=== PATIENT | female | born 1960 | race Caucasian/White ===

== ENCOUNTER → 2016-06-19 | Outpatient (CLI) | payer MEDICARE ==
[~2016-06-19] MED LIST: ASPIRIN324 MG PO; ASPIRIN325 MG PO; ASPIRIN81 M1 PO; ATARAX25 MG PO; ATIVAN0.5 MG PO; AUGMENTIN 875 M1 TAB PO; AUGMENTIN 875875 MG PO; BENTYL10 MG PO; CIPRODEX 0.3%-7.5 ML OT; HYDROCODONE BIT1 T11 PO; IBUPROFEN 30 M800 MG PO; LIPITOR40 MG PO; LORAZEPAM0.5 MG PO; MEDROL DOSEPAK4 MG PO; MOBIC7.5 MG PO; MOTRIN800 MG PO; NAPROSYN500 MG PO; NASONEX0.05 MG/AC NAS; NKHM; NORCO 325 MG-51 TAB PO; OMEPRAZOLE MAGN20 MG PO; PARAFON FORTE500 MG PO; PEPCID20 MG PO; PERCOCET 325 MG1 TA6 PO; PREDNICOT20 MG PO; PREDNISONE10 M1 PO; PRILOSEC20 MG PO; PROAIR HFA8.5 GM IH; PROZAC20 MG PO; REMERON15 MG PO; SPIRIVA -- 3018 MCG PO; TRAMADOL HCL50 MG PO; ULTRAM50 MG PO; VIBRAMYCIN100 MG PO; VITAMIN D2000 IU PO; ZYRTEC10 MG PO
== END | disposition home or self-care (01) ==
LOC: MAMMO 02:59
DX: Z12.31 Encounter for screening mammogram for malignant neoplasm of breast (principal)

== ENCOUNTER 2016-12-23 15:10 | Emergency (ER) | payer MEDICARE ==
[~2016-12-23] VITALS: Ht 172.7 cm; Wt 102.1 kg
[2016-12-23 15:18] VITALS: BP 149/87
[2016-12-23] MEDS ORDERED: CEPHALEXIN500 M1 PO (15:31)
== END 2016-12-23 16:15 | disposition home or self-care (01) ==
LOC: ED 15:10
DX: S91.331A Puncture wound without foreign body, right foot, initial encounter (principal); J44.9 Chronic obstructive pulmonary disease, unspecified; F17.200 Nicotine dependence, unspecified, uncomplicated; Z79.899 Other long term (current) drug therapy; Z79.02 Long term (current) use of antithrombotics/antiplatelets; W45.0XXA Nail entering through skin, initial encounter; Y93.89 Activity, other specified; Y92.89 Other specified places as the place of occurrence of the external cause; Y99.8 Other external cause status

== ENCOUNTER → 2017-08-22 | Outpatient (CLI) | payer MEDICARE ==
[~2017-08-22] MED LIST changes: +CEPHALEXIN500 M1 PO
== END | disposition home or self-care (01) ==
LOC: MAMMO 01:19
DX: Z12.31 Encounter for screening mammogram for malignant neoplasm of breast (principal)

== ENCOUNTER → 2017-10-23 | Outpatient (CLI) | payer MEDICARE | END | disposition home or self-care (01) | LOC: RAD 12:47 → CT 14:00 | DX: Z13.820 Encounter for screening for osteoporosis (principal); Z12.2 Encounter for screening for malignant neoplasm of respiratory organs; R06.02 Shortness of breath; F17.200 Nicotine dependence, unspecified, uncomplicated; Z78.0 Asymptomatic menopausal state ==

== ENCOUNTER → 2017-12-19 | Outpatient (CLI) | payer MEDICARE ==
[~2017-12-19] MED LIST changes: +CYMBALTA30 MG PO; -PROZAC20 MG PO; +PROZAC40 M1 PO
== END | disposition home or self-care (01) ==
LOC: CARD 07:55
DX: R07.2 Precordial pain (principal); R00.2 Palpitations

== ENCOUNTER → 2017-12-28 | Outpatient (CLI) | payer MEDICARE | END | disposition home or self-care (01) | LOC: US 12-27 10:30 | DX: K76.0 Fatty (change of) liver, not elsewhere classified (principal); Z90.49 Acquired absence of other specified parts of digestive tract ==

== ENCOUNTER → 2018-03-01 | Outpatient (CLI) | payer MEDICARE ==
[2018-03-01 15:50] LABS: BILIRUBIN NEGATIVE (NEGATIVE); BLOOD TRACE-LYSED (NEGATIVE); CLARITY CLEAR (CLEAR); COLOR YELLOW (YELLOW); GLUCOSE NEGATIVE (NEGATIVE); KETONE NEGATIVE (NEGATIVE); LEUKO ESTERASE TRACE (NEGATIVE); NITRITE NEGATIVE (NEGATIVE); SPECIFIC GRAVITY <= 1.005 (1.005-1.030); UROBILINOGEN 0.2 E.U./dl (0.2-1.0)
[2018-03-01 16:13] LABS: BUN 17 mg/dl (7-24); CHLORIDE 102 mmol/L (98-107); CREATININE 1.12 mg/dL (0.55-1.02); POTASSIUM 3.6 mmol/L (3.5-5.1); SODIUM 139 mmol/L (136-145)
[2018-03-01 16:19] LABS: BACTERIA TRACE
== END | disposition home or self-care (01) ==
LOC: LAB 15:17
PROVIDERS: Internal Medicine Nephrology
DX: N18.9 Chronic kidney disease, unspecified (principal)

== ENCOUNTER 2019-03-18 15:15 | Emergency (ER) | payer MEDICARE ==
[~2019-03-18] VITALS: Ht 167.6 cm; Wt 101.6 kg
[2019-03-18 15:15] VITALS: BP 131/72
== END 2019-03-18 16:54 | disposition home or self-care (01) ==
LOC: ED 15:15
DX: M72.2 Plantar fascial fibromatosis (principal); I25.2 Old myocardial infarction; I10 Essential (primary) hypertension; K21.9 Gastro-esophageal reflux disease without esophagitis; G89.29 Other chronic pain; J44.9 Chronic obstructive pulmonary disease, unspecified; E78.00 Pure hypercholesterolemia, unspecified; Z88.8 Allergy status to other drugs, medicaments and biological substances; Z91.048 Other nonmedicinal substance allergy status; Z79.899 Other long term (current) drug therapy; Z90.49 Acquired absence of other specified parts of digestive tract; Z86.73 Personal history of transient ischemic attack (TIA), and cerebral infarction without residual deficits

== ENCOUNTER → 2019-04-21 | Outpatient (CLI) | payer MEDICARE | END | disposition home or self-care (01) | LOC: LAB 10:27 | DX: B34.9 Viral infection, unspecified (principal) ==

== ENCOUNTER → 2019-05-07 | Outpatient (CLI) | payer MEDICARE | END | disposition home or self-care (01) | LOC: MAMMO 08:56 | DX: Z12.31 Encounter for screening mammogram for malignant neoplasm of breast (principal) ==

== ENCOUNTER 2020-01-30 20:07 | Emergency (ER) | payer MEDICARE ==
[~2020-01-30] VITALS: Wt 104.3 kg
[2020-01-30 20:14] VITALS: BP 130/86
== END 2020-01-30 20:53 | disposition home or self-care (01) ==
LOC: ED 20:07
DX: R05 Cough (principal); Z88.8 Allergy status to other drugs, medicaments and biological substances; Z79.899 Other long term (current) drug therapy; Z20.828 Contact with and (suspected) exposure to other viral communicable diseases

== ENCOUNTER → 2020-03-15 | Outpatient (CLI) | payer MEDICARE | END | disposition home or self-care (01) | LOC: CARD 07:30 → MAMMO 07:30 → CARD 08:05 | PROVIDERS: ATTEND Internal Medicine | DX: R00.2 Palpitations (principal) ==

== ENCOUNTER → 2020-08-25 | Outpatient (CLI) | payer MEDICARE | END | disposition home or self-care (01) | LOC: US 09:16 → MAMMO 10:30 | PROVIDERS: ATTEND Internal Medicine | DX: R10.12 Left upper quadrant pain (principal) ==

== ENCOUNTER → 2020-09-01 | Outpatient (CLI) | payer MEDICARE ==
[2020-09-01 13:38] LABS: BASO % 0.5 % (0.0-1.0); EOS # 0.7 10*3/uL (0.0-0.4); EOS % 7.5 % (1.0-4.0); LYMPH # 2.4 10*3/uL (1.3-4.4); LYMPH % 27.1 % (27.0-41.0); MEAN CELL VOLUME 98.5 fl (81.0-99.0); MEAN CORPUSCULAR HGB 31.9 pg (27.0-31.0); MEAN CORPUSCULAR HGB CONC 32.3 g/dl (33.0-37.0); MEAN PLATELET VOLUME 10.8 fl (9.6-12.3); MONO # 0.7 10*3/uL (0.1-1.0); MONO % 7.5 % (3.0-9.0); NEUT # 5.1 10*3/uL (2.3-7.9); NEUT % 57.1 % (47.0-73.0); PLATELET COUNT AUTOMATED 268 10*3/uL (130-400); RED BLOOD COUNT 4.77 10*6/uL (4.10-5.10); RED CELL DISTRI WIDTH 11.8 % (0-14.5); WHITE BLOOD COUNT 8.9 10*3/uL (4.8-10.8)
[2020-09-01 14:07] LABS: ALBUMIN 3.1 gm/dl (3.1-4.5); ALKALINE PHOSPHATASE 107 U/L (45-117); BUN 18 mg/dl (7-24); CHLORIDE 103 mmol/L (98-107); CREATININE 1.04 mg/dL (0.55-1.02); FREE T4 0.96 ng/dl (0.76-1.46); SGOT/AST 15 IU/L (3-35); SGPT/ALT 23 U/L (12-78); SODIUM 137 mmol/L (136-145); TOTAL PROTEIN 7.2 gm/dL (6.4-8.2)
== END | disposition home or self-care (01) ==
LOC: LAB 11:46
PROVIDERS: ATTEND Internal Medicine
DX: R20.2 Paresthesia of skin (principal)

== ENCOUNTER → 2020-09-02 | Outpatient (CLI) | payer MEDICARE | END | disposition home or self-care (01) | LOC: CT 00:12 | PROVIDERS: ATTEND Internal Medicine | DX: K43.9 Ventral hernia without obstruction or gangrene (principal); Z90.49 Acquired absence of other specified parts of digestive tract ==

== ENCOUNTER 2020-09-30 19:28 | Emergency (ER) | payer MEDICARE ==
[~2020-09-30] VITALS: Ht 172.7 cm; Wt 101.2 kg
[2020-09-30 19:41] VITALS: BP 109/71
== END 2020-09-30 20:22 | disposition home or self-care (01) ==
LOC: ED 19:28
DX: R21 Rash and other nonspecific skin eruption (principal); T50.995A Adverse effect of other drugs, medicaments and biological substances, initial encounter; Z79.899 Other long term (current) drug therapy; Y92.89 Other specified places as the place of occurrence of the external cause

== ENCOUNTER 2020-11-28 19:18 | Emergency (ER) | payer MEDICARE ==
[~2020-11-28] VITALS: Ht 167.6 cm; Wt 86.2 kg
[2020-11-28 19:39] LABS: BASO # 0.1 10*3/uL (0.0-0.1); BASO % 0.6 % (0.0-1.0); EOS # 0.6 10*3/uL (0.0-0.4); EOS % 5.9 % (1.0-4.0); HEMATOCRIT 45.5 % (37.0-47.0); LYMPH # 3.2 10*3/uL (1.3-4.4); MEAN CELL VOLUME 97.2 fl (81.0-99.0); MEAN CORPUSCULAR HGB 32.1 pg (27.0-31.0); MEAN PLATELET VOLUME 9.4 fl (9.6-12.3); MONO # 0.7 10*3/uL (0.1-1.0); MONO % 7.9 % (3.0-9.0); NEUT # 4.8 10*3/uL (2.3-7.9); NEUT % 51.2 % (47.0-73.0); PLATELET COUNT AUTOMATED 250 10*3/uL (130-400); RED BLOOD COUNT 4.68 10*6/uL (4.10-5.10); RED CELL DISTRI WIDTH 11.9 % (0-14.5); WHITE BLOOD COUNT 9.4 10*3/uL (4.8-10.8)
[2020-11-28 19:41] LABS: BILIRUBIN Negative (Negative); BLOOD Negative (Negative); CLARITY Clear (Clear); COLOR Yellow (Yellow); GLUCOSE Negative (Negative); KETONE Negative (Negative); LEUKO ESTERASE Negative (Negative); NITRITE Negative (Negative); PH 6.5 (4.5-8.0); SPECIFIC GRAVITY <= 1.005 (1.001-1.030); UROBILINOGEN 0.2 E.U./dl (0.0-1.0)
[2020-11-28 19:50] LABS: BACTERIA TRACE; URINE AMPHETAMINES < 1000 (1000ng/ml); URINE BARBITURATES < 200 (200ng/ml); URINE BENZODIAZEPINES < 200 (200ng/ml); URINE CANNABINOIDS (THC) < 50 (50ng/ml); URINE COCAINE < 300 (300ng/ml); URINE METHADONE < 300 (300ng/ml); URINE OPIATES < 300 (300ng/ml); URINE PHENCYCLIDINE < 25 (25ng/ml)
[2020-11-28 19:55] LABS: ALBUMIN 3.4 gm/dl (3.1-4.5); ALKALINE PHOSPHATASE 110 U/L (45-117); BUN 17 mg/dl (7-24); CHLORIDE 102 mmol/L (98-107); CREATININE 1.34 mg/dL (0.55-1.02); POTASSIUM 3.8 mmol/L (3.5-5.1); SGOT/AST 24 IU/L (3-35); SGPT/ALT 23 U/L (12-78); SODIUM 138 mmol/L (136-145); TOTAL PROTEIN 7.1 gm/dL (6.4-8.2)
[2020-11-28 20:04] LABS: ACETAMINOPHEN (TYLENOL) < 5.0 ug/ml (10-30); ETHYL ALCOHOL < 3.0 mg/dl (<3)
[2020-11-29 08:36] VITALS: BP 113/71
== END 2020-11-29 08:41 | disposition home or self-care (01) ==
LOC: ED 19:18
PROVIDERS: Emergency Medicine
DX: F43.21 Adjustment disorder with depressed mood (principal); J44.9 Chronic obstructive pulmonary disease, unspecified; Z88.8 Allergy status to other drugs, medicaments and biological substances; Z91.048 Other nonmedicinal substance allergy status; Z79.899 Other long term (current) drug therapy; Z98.51 Tubal ligation status; Z98.890 Other specified postprocedural states

== ENCOUNTER → 2021-04-15 | Outpatient (CLI) | payer MEDICARE | END | disposition home or self-care (01) | LOC: RAD 12:12 | PROVIDERS: ATTEND Internal Medicine | DX: M25.721 Osteophyte, right elbow (principal); M19.011 Primary osteoarthritis, right shoulder ==

== ENCOUNTER → 2021-05-06 | Outpatient (CLI) | payer MEDICARE | END | disposition home or self-care (01) | LOC: RAD 15:52 | PROVIDERS: ATTEND Internal Medicine | DX: M47.22 Other spondylosis with radiculopathy, cervical region (principal); M25.78 Osteophyte, vertebrae; M48.02 Spinal stenosis, cervical region ==

== ENCOUNTER → 2021-06-22 | Outpatient (CLI) | payer MEDICARE | END | disposition home or self-care (01) | LOC: MRI 09:21 | PROVIDERS: ATTEND Internal Medicine | DX: M47.26 Other spondylosis with radiculopathy, lumbar region (principal); M48.02 Spinal stenosis, cervical region; M25.78 Osteophyte, vertebrae ==

== ENCOUNTER → 2021-10-26 | Outpatient (CLI) | payer OTHER ==
[~2021-10-26] MED LIST changes: +NEURONTIN100 MG PO; +PINDOLOL5 MG PO; +SINGULAIR10 M1 PO; +Synthroid,Levo50 MCG PO; +VENTOLIN,PR2 MG/5 ML PO
== END ==
LOC: CARD 00:11
PROVIDERS: ATTEND Internal Medicine
DX: R07.2 Precordial pain (principal)

== ENCOUNTER → 2022-06-01 | Outpatient (CLI) | payer OTHER | END | disposition home or self-care (01) | LOC: MAMMO 01:05 | PROVIDERS: ATTEND Internal Medicine | DX: Z12.31 Encounter for screening mammogram for malignant neoplasm of breast (principal) ==

== ENCOUNTER → 2022-09-14 | Outpatient (CLI) | payer OTHER | END | disposition home or self-care (01) | LOC: US 01:10 | PROVIDERS: ATTEND Internal Medicine | DX: L81.9 Disorder of pigmentation, unspecified (principal) ==

== ENCOUNTER 2023-04-09 17:51 | Emergency (ER) | payer OTHER ==
[~2023-04-09] VITALS: Ht 172.7 cm; Wt 97.5 kg
[2023-04-09 18:35] VITALS: BP 116/65
[2023-04-09 19:15] LABS: BASO % 0.2 % (0.0-1.0); EOS # 0.1 10*3/uL (0.0-0.4); EOS % 1.2 % (1.0-4.0); HEMATOCRIT 48.2 % (37.0-47.0); LYMPH % 16.9 % (27.0-41.0); MEAN CELL VOLUME 100.2 fl (81.0-99.0); MEAN CORPUSCULAR HGB 32.6 pg (27.0-31.0); MEAN CORPUSCULAR HGB CONC 32.6 g/dl (33.0-37.0); MEAN PLATELET VOLUME 9.1 fl (9.6-12.3); MONO # 0.9 10*3/uL (0.1-1.0); MONO % 15.6 % (3.0-9.0); NEUT # 3.9 10*3/uL (2.3-7.9); NEUT % 65.4 % (47.0-73.0); PLATELET COUNT AUTOMATED 186 10*3/uL (130-400); RED BLOOD COUNT 4.81 10*6/uL (4.10-5.10); RED CELL DISTRI WIDTH 11.3 % (0-14.5)
[2023-04-09 20:14] LABS: POTASSIUM 3.6 mmol/L (3.4-5.1)
[2023-04-09] MEDS ORDERED: AMOX-CLAV 875-1 EACH PO (21:39)
[2023-04-11] MEDS ORDERED: SPIRIVA18 MCG PO (15:25)
[2023-04-11] MEDS ORDERED: PERCOCET 5-3251 EACH PO (15:26)
[2023-04-11] MEDS ORDERED: FLONASE ALLERG9.9 ML NAS (15:27)
[2023-04-11] MEDS ORDERED: LIPITOR40 MG PO (15:28)
== END 2023-04-09 21:55 | disposition home or self-care (01) ==
LOC: ED 17:51
PROVIDERS: Nurse Practitioner Family
DX: B34.9 Viral infection, unspecified (principal); Z20.822 Contact with and (suspected) exposure to COVID-19; E87.1 Hypo-osmolality and hyponatremia; J32.9 Chronic sinusitis, unspecified; Z88.8 Allergy status to other drugs, medicaments and biological substances; J44.9 Chronic obstructive pulmonary disease, unspecified; I25.2 Old myocardial infarction; F32.A Depression, unspecified; I10 Essential (primary) hypertension; K21.9 Gastro-esophageal reflux disease without esophagitis; E78.00 Pure hypercholesterolemia, unspecified; Z86.73 Personal history of transient ischemic attack (TIA), and cerebral infarction without residual deficits; Z98.51 Tubal ligation status; Z98.890 Other specified postprocedural states; Z95.5 Presence of coronary angioplasty implant and graft

== ENCOUNTER → 2023-06-13 | Outpatient (CLI) | payer OTHER ==
[~2023-06-13] MED LIST changes: +AMOX-CLAV 875-1 EACH PO; +DOXYCYCLINE MO100 MG PO; +FLONASE ALLERG9.9 ML NAS; +PERCOCET 5-3251 EACH PO; +SPIRIVA18 MCG PO; +Tamiflu 75MG Capsule PO
== END | disposition home or self-care (01) ==
LOC: MAMMO 04:11
PROVIDERS: ATTEND Internal Medicine
DX: Z12.31 Encounter for screening mammogram for malignant neoplasm of breast (principal); N64.9 Disorder of breast, unspecified

== ENCOUNTER 2024-05-22 13:02 | Observation (INO) | payer OTHER ==
[~2024-05-22] VITALS: Ht 172.7 cm; Wt 90.3 kg
[2024-05-22 13:06] VITALS: BP 130/68
[2024-05-22 13:26] LABS: BASO % 0.6 % (0.0-1.0); EOS # 0.3 10*3/uL (0.0-0.4); EOS % 4.9 % (1.0-4.0); MEAN CELL VOLUME 100.2 fl (81.0-99.0); MEAN CORPUSCULAR HGB 32.2 pg (27.0-31.0); MEAN CORPUSCULAR HGB CONC 32.2 g/dl (33.0-37.0); MEAN PLATELET VOLUME 8.9 fl (9.6-12.3); MONO # 0.5 10*3/uL (0.1-1.0); MONO % 7.6 % (3.0-9.0); NEUT % 57.5 % (47.0-73.0); PLATELET COUNT AUTOMATED 252 10*3/uL (130-400); RED BLOOD COUNT 4.59 10*6/uL (4.10-5.10); RED CELL DISTRI WIDTH 11.7 % (0-14.5); WHITE BLOOD COUNT 6.9 10*3/uL (4.8-10.8)
[2024-05-22 13:41] LABS: BUN 17 mg/dl (9-23); CHLORIDE 105 mmol/L (98-107)
[2024-05-22] MEDS ORDERED: FLUTICASONE PROPIONATE Nasal 16 Gm spray NAS PRN (15:50)
[2024-05-22] MEDS ORDERED: Acetaminophen/Oxycodone 5 MG/325 MG TABLET PO PRN (15:55)
[2024-05-22] MEDS ORDERED: ALBUTEROL 2 MG/5 ML PO PRN (15:55)
[2024-05-22 16:00] VITALS: BP 120/81
[2024-05-22] MEDS ORDERED: IPRATROPIUM BROMIDE 0.5 MG/2.5 ML AMP NEB SCH (16:10)
[2024-05-22 20:00] VITALS: BP 112/70
[2024-05-22] MEDS ORDERED: ATORVASTATIN CALCIUM 40 MG TABLET PO SCH (21:39)
[2024-05-22] MEDS ORDERED: FLUoxetine Hydrochloride 20 MG CAP PO SCH (21:39)
[2024-05-22] MEDS ORDERED: OMEPRAZOLE 20 MG CAP PO SCH (21:40)
[2024-05-22] MEDS ORDERED: VITAMIN E400 UNIT PO (21:58)
[2024-05-22] MEDS ORDERED: QVAR REDIHALE10.6 GM INH (21:59)
[2024-05-22] MEDS ORDERED: GABAPENTIN 100 MG CAP PO SCH (22:00)
[2024-05-22] MEDS ORDERED: Nicotine 21 MG PATCH T SCH (22:00)
[2024-05-22] MEDS ORDERED: VENTOLIN 02.5 MG/3 M INH (22:00)
[2024-05-23] VITALS: BP 109/65
[2024-05-23] MEDS ORDERED: Levothyroxine Sodium 50 MCG TAB PO SCH (06:00)
[2024-05-23] MEDS ORDERED: Regadenoson 0.4 MG/5 ML SYR IV ONE (06:19)
[2024-05-23 08:00] VITALS: BP 117/77
[2024-05-23] MEDS ORDERED: ATENOLOL 25 MG TAB PO SCH (10:00)
[2024-05-23] MEDS ORDERED: LORazepam 0.5 MG TAB PO SCH (10:00)
[2024-05-23] MEDS ORDERED: TIOTROPIUM BROMIDE 18 MCG CAPSULES INHALER INH SCH (10:00)
[2024-05-23] MEDS ORDERED: Montelukast Sodium 10 MG TAB PO SCH (10:00)
[2024-05-23 12:00] VITALS: BP 142/88
[2024-05-23 16:00] VITALS: BP 116/66
== END 2024-05-23 16:55 | disposition home or self-care (01) ==
LOC: ED 13:02 → EDHOLD 13:48 → 5E 13:48
PROVIDERS: Physician Assistant Medical; ADMIT Internal Medicine; ATTEND Internal Medicine
DX: R07.89 Other chest pain (principal); J44.1 Chronic obstructive pulmonary disease with (acute) exacerbation; N18.9 Chronic kidney disease, unspecified; M54.50 Low back pain, unspecified; Z79.899 Other long term (current) drug therapy

== ENCOUNTER → 2024-10-23 | Outpatient (CLI) | payer OTHER ==
[~2024-10-23] MED LIST changes: +QVAR REDIHALE10.6 GM INH; +VENTOLIN 02.5 MG/3 M INH; +VITAMIN E400 UNIT PO
== END | disposition home or self-care (01) ==
LOC: CT 00:24
PROVIDERS: ATTEND Internal Medicine
DX: Z12.2 Encounter for screening for malignant neoplasm of respiratory organs (principal); F17.210 Nicotine dependence, cigarettes, uncomplicated